=== PATIENT | male | born 1940 | race Caucasian/White ===

== ENCOUNTER → 2016-09-13 | Outpatient (CLI) | payer MEDICARE, OTHER ==
--- NOTE | 2016-09-13 14:56 | RADRPT ---
PROCEDURE: XR left knee. CLINICAL INDICATION: Knee pain TECHNIQUE: AP weightbearing, lateral weightbearing and sunrise views are available for review. COMPARISON: None available FINDINGS: There is moderate to severe osteoarthrosis involving the medial tibial femoral compartment and moder ate osteoarthrosis involving the patellofemoral compartment. This is associated with joint space yeyo rowing, subchondral sclerosis and osteophytosis. There is otherwise normal mineralization, architecture and alignment. No fractures are identified. No osseous lesions are identified. The soft tissues are unremarkable. IMPRESSION: Moderate to severe osteoarthrosis involving the medial tibial femoral compartment and moderate osteo arthrosis involving the patellofemoral compartment. RPTAT: HGDB .Rafael Carey MD, Date Time Electronically viewed and signed by .Rafael Carey MD, on 09/13/2016 14:56 .B/
--- NOTE | 2016-09-14 05:58 | HKNOTE ---
DATE OF SERVICE: 09/13/2016 MAIN COMPLAINT: Pain in the right knee. HISTORY OF MAIN COMPLAINT: The patient is a 76-year-old male who complains of pain in his right kne e which has been present since 2005. The patient underwent an arthroscopic operation on his knee at the [facility] 6 years ago. He was told at that time that his knee w as "full of arthritis," and that he could expect to have a knee replacement in the future. Over the past year, the pain has become very much worse and he can hardly get around. Patient has had 2 "series" of viscosupplementation. The first helped slightly, the 2nd did not help at all. He has had 2 cortisone injections into the knee which helped very temporarily. PRESENT COMPLAINTS: The pain in the knee is localized mostly medially and posteriorly. Pain does n ot radiate up or down the leg. Pain degree varies upon his level of activity. He can walk about 10 0 yards without stopping, but if he goes any further, the pain becomes so bad that he has to stop fo r a while. He has a cane. He gets pain with every step that he takes. His pain is aggravated by w alking, weightbearing and stair climbing. He does not get much pain at rest. Sometimes he gets nig ht pain. He does not have any back problems, no numbness or tingling in his legs. He limps all the time. He does not have a shoe lift. He can clip his toenails and tie his shoelaces . SPORTING ACTIVITIES: He rides a stationary bike every day. Otherwise, none. PAST ORTHOPEDIC HISTORY: Arthroscopy on the left knee 15 years ago for a torn meniscus. PRIOR CORTISONE INTAKE: The patient has had 2 cortisone injections in the past. ALCOHOL INTAKE: None. OTHER JOINT PROBLEMS: Right shoulder. BLOOD TESTS FOR ARTHRITIS: None. PRIOR INJURIES TO HIPS OR KNEES: None. 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 PAST MEDICAL HISTORY 1. Interstitial lung disease. 2. Parkinson's disease with Lewy bodies. 3. Hydrocephalus. PAST SURGICAL HISTORY: Arthroscopic surgery to the right knee by Dr. Mota in 2004. ALLERGIES: SULFA. MEDICATIONS: 1. OFEV for his interstitial lung disease. 2. Levodopa/carbidopa for Parkinson's disease. 3. Pioglitazone once a day for high blood sugar. 4. Azilect once a day. 5. Namenda ____twice a day. 6. Simvastatin for hypercholesterolemia. 7. Vitamin B12 for hypercholesterolemia. FAMILY HISTORY: Father at 80 of heart problems. Mother at 84 of heart problems. SYSTEMS REVIEW: Occasional heartburn. Occasional poor appetite. Gait disturbance. Prolonged hoars eness. Habitual constipation. HABITS: Patient does not smoke or drink alcoholic beverages. INDUSTRIAL LABORER: Dr. Jose Frost. PHYSICAL EXAMINATION GENERAL: The patient is a remarkably fit-looking 76-year-old male. He walks with a cane. He has a n antalgic gait. HIPS: Both hips have full range of motion without pain. RIGHT KNEE: The right knee shows varus alignment. Marked pain on putting the right knee through ran ge of motion. Active and passive extension lacks 10 degrees. Active and passive flexion is to 100 de grees. The medial and lateral collateral ligaments and cruciate ligaments are intact. Ramses test i s negative. There is 4+ crepitus in the knee; none in the patella. There is no effusion, tenderness , scarring, or cysts. The patella tracks normally. There is no tenderness on the articular surface o f the patella or in the patellar groove. The Q angle is normal. LEFT KNEE: The left knee shows normal alignment. Active and passive extension is 0 degrees. Active and passive flexion is 135 degrees. The medial and lateral collateral ligaments and cruciate ligamen ts are intact. Ramses test is negative. There is 4+ crepitus at the knee; none at the patella. The re is no effusion, tenderness, scarring, or cysts. The patella tracks normally. There is no tenderne ss on the articular surface of the patella or in the patellar groove. The Q angle is normal. IMAGING: Plain x-rays of the right knee obtained today show exceedingly severe degenerative osteoar thritis of the right knee affecting most severely the medial compartment and patellofemoral compartm ent., in which compartments, there is complete bone on bone loss of articular cartilage. Subchondr al sclerosis. Large osteophytes. Intraosseous cysts. Marked varus alignment. DIAGNOSIS: Exceedingly severe degenerative osteoarthritis of the right knee. MANAGEMENT: The patient is advised that he most certainly is a candidate for a knee replacement ope ration. The procedure and some of the major possible complications were discussed with him and his in a fair amount of detail. The patient was given my manual titled "Arthritis of the Hip Joint" which contains information ricardo rning the various alternatives of treatment. It includes various forms of conservative treatment, in cluding the use of nonsteroidal anti-inflammatory medications and their dangers. Various surgical al ternatives are discussed. The technique of total hip replacement is discussed in detail, including p ossible complications. Included also is a section on the possible complications of blood transfusion , a section on postoperative precautions, and an exercise program to follow at home after total hip replacement. The long-term care of a total hip replacement implant is also covered in detail. The pa mabel was instructed to read this manual in its entirety since it is, in and of itself, a form of in formed consent. After reading this manual, the patient will make a list of further questions that ma y not have been covered adequately. The patient was further advised that this manual, although exhau stive in nature, is only intended to supplement and complement a one-on-one discussion with me. The actual operation was discussed with him in a fair amount of detail. They were shown a model and drawings. Mr. Martin indicates that he is quite anxious to proceed with the procedure. He will first obtain clearance from his laborer/key man. the most important being Dr. Jose Frost ____. Dictated By: TATI ASHFORD/SANDRA Conf#: [id number] DID#: [id number]
== END | disposition home or self-care (01) ==
LOC: HKI 14:04
DX: M17.11 Unilateral primary osteoarthritis, right knee (principal); Z88.2 Allergy status to sulfonamides
CPT/HCPCS: 73562; G0463

== ENCOUNTER → 2016-11-03 | Outpatient (CLI) | payer MEDICARE, OTHER ==
--- NOTE | 2016-11-04 00:24 | HKNOTE ---
DATE OF SERVICE: 11/03/2016 Patient comes in for preoperative evaluation. He is scheduled to have operative arthroscopy on his left knee on 11/08/2016. He has been cleared for surgery by his teaching specialists, Dr. Suresh Huff. The patient has Parkinson's. He stopped taking his Diazole 3 days ago. This was recommended by h is neurologist, Dr. Jose Hall. Numerous questions were asked and answered. The patient's x-rays were reviewed. He has bone-on-bon e degenerative osteoarthritis. He comes in with his . No blood has been given for autotransfus ion. He understands the risks associated with using hospital blood. He is agreeable to [facility] blood if needed. Dictated By: TATI ASHFORD/SANDRA Conf#: [id number] DID#: [id number]
== END | disposition home or self-care (01) ==
LOC: HKI 13:21
DX: Z01.818 Encounter for other preprocedural examination (principal)
CPT/HCPCS: G0463

== ENCOUNTER 2016-11-08 05:16 | Inpatient (IN) | payer MEDICARE, OTHER ==
--- NOTE | 2016-11-03 09:24 | PREOPHP ---
DATE OF ADMISSION: 11/08/2016 The patient is to have surgery with Dr. Ray Romero on 11/08/2016. REASON FOR CONSULTATION: Consultation requested by Dr. Ray Romero for medical evaluation and clearance of a 76-year-old gentleman about to undergo total knee replacement on the left side. Thank you, Dr. Romero, for allowing us to participate in the care of this patient. HISTORY OF PRESENT ILLNESS: Wei Martin is a 76-year-old gentleman with problems with his left knee, who is currently being admitted for a total knee replacement. In terms of his prior surgical history, he has had arthroscopic surgery on that knee. He also had a lung biopsy on the right side for his interstitial lung disease. Other than that, he has really not had any medical hospitalizations, nor has he had any other major surgeries. He has also not broken any big bones. MEDICATIONS: He is currently taking the following medications: 1. Carbidopa/levodopa 25 mg, 2 tablets 3 times a day. 2. Namenda 10 mg, 1 tablet twice a day. 3. Simvastatin 20 mg, 1 a day. 4. Omeprazole 20 mg, 1 a day. 5. Nintedanib 150 mg, 1 tablet 2 times a day. 6. Pioglitazone 30 mg, 1 tablet a day, or Actos. 7. Azilect 1 mg, 1 tablet per day. 8. B12 5000 mcg daily. 9. Ipratropium bromide 0.6% solution 3 times a day, nasal spray for his allergies. ALLERGIES: SULFA. General health has been stable. SOCIAL HISTORY: The patient is , has 1 daughter. He does not smoke. Alcohol socially. He drinks 2 cups of coffee a day. 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 FAMILY HISTORY: Both parents are , both in their 80s of heart issues. One brother had dementia. One sister is alive and well. There is a family history of heart disease, hypertension, and stroke. REVIEW OF SYSTEMS: HEENT: Denies any significant headaches. CARDIORESPIRATORY: He does have shortness of breath on exertion. GASTROINTESTINAL: No melena or hematemesis. He does have some mild irritable bowel syndrome, as well as acid-related symptoms. GENITOURINARY: No urgency or frequency. MUSCULOSKELETAL: Positive for left knee pain. NEUROPSYCHIATRIC: Unremarkable. GENERAL HEALTH: As above. PHYSICAL EXAMINATION: VITAL SIGNS: The patient's blood pressure was 122/76, pulse was 80 and regular , respirations 18, temperature 97.6. Height 5 feet 7 inches, weight 171 pounds. GENERAL: The patient was noted to be a well-developed, well-nourished male, alert and cooperative, in no apparent acute distress, oriented to time, place, and person. HEAD, EARS, EYES, NOSE AND THROAT: Head was atraumatic. Eyes: Pupils were equal, reactive to light and accommodation. Fundi were benign. Tympanic membranes were unremarkable. Nose was negative. Mouth was unremarkable. Fair oral hygiene was present. NECK: Supple, without any rigidity. Trachea was midline. Thyroid was unremarkable. Neck veins were flat. Carotid pulses were equal. BACK EXAM: Unremarkable. CHEST: Symmetrical. Scars on the right side noted from his lung biopsy anteriorly. BREASTS AND AXILLARY EXAM: Did not reveal any masses. LUNGS: Revealed scattered rhonchi, occasional rales and wheezes. Otherwise unremarkable. HEART: Examination of the heart, PMI is fifth intercostal space at the midclavicular line. Regular sinus rhythm was noted. No significant murmurs, rubs, or gallops being elicited. ABDOMEN: Soft, good bowel sounds were noted. No significant organomegaly, masses, or tenderness. GENITALIA: Normal male external genitalia. RECTAL AND PROSTATIC EXAM: Per PCP, compatible with enlarged prostate, as reported by the patient. EXTREMITIES: Did not reveal any clubbing, edema or cyanosis. Some limitation of motion in the left knee being noted. Peripheral pulses were physiologic. SKIN: Moist and warm, without any eruptions. No gross lymphadenopathy was noted. NEUROLOGIC EXAM: Grossly intact. IMPRESSION: 1. Degenerative joint disease, left knee. 2. Interstitial lung disease, moderate. 3. Parkinson's disease. 4. Hyperlipidemia. 5. Gastroesophageal reflux disease. 6. Diabetes mellitus type 2. 7. Stable health. DISCUSSION: Review of laboratory and other data revealed the following: The patient's chemistry panel, including electrolytes, glucose, BUN, creatinine and liver function tests, cholesterol, magnesium, iron and TSH, were normal. Patient's hemoglobin A1c was 6.7, which is good control. CBC, sed rate, UA, PT and PTT were normal as well. The patient's EKG revealed some nonspecific ST-T wave changes, but no acute ST-T wave changes being noted. His chest x-ray was compatible with moderate chronic interstitial infiltrates and elevated diaphragms, but no acute cardiopulmonary changes being noted. DISCUSSION: Dr. Romero, the patient has been cleared by his adding machine operator, gem carver, and other individuals that are following him in terms of his surgery. I feel that at this point, he is a suitable candidate for surgery and can have this surgery under any desired form of anesthesia, albeit possibly a regional block may be preferable, if that is achievable, in view of his significant lung issues. Thank you again, Dr. Romero, for allowing us to participate in the care of this patient. We will follow him along with you during his stay at [facility]. Dictated By: TENISHA COLLADO/SANDRA Conf#: [id number] DID#: [id number] MTDD
[2016-11-07 10:16] VITALS: BMI 26.6
[~2016-11-08] VITALS: Ht 170.2 cm; Wt 78.0 kg
[2016-11-08] VITALS (34 sets, daily range): BP systolic 125–160; BP diastolic 59–85; PULSE 66–96; RESP 12–35; Ht 170.2 cm; Wt 78.0 kg
[2016-11-08] MEDS: LACTATED RINGER'S 1,000 ML IV* SCH ×2 (05:49)
[2016-11-08] MEDS: TRANEXAMIC ACID IRR SCH ×4 (06:00→08:52)
[2016-11-08] MEDS ORDERED: KNEE PAIN COCKTAIL VANCO INJ SCH ×6 (06:00)
[2016-11-08] MEDS ORDERED: TRANEXAMIC ACID IVPB ONE (06:00)
[2016-11-08] MEDS ORDERED: DEXAMETHASONE 4 MG/ML 1 ML INJ IV ONE (06:00)
[2016-11-08] MEDS ORDERED: SOD CHLORIDE 0.9% IVPB ONE (06:00)
[2016-11-08] MEDS ORDERED: ONDANSETRON 4 MG INJ IV ONE (06:00)
[2016-11-08] MEDS: SOD CHLORIDE 0.9% IRR SCH ×4 (06:00→08:52)
[2016-11-08] MEDS ORDERED: oxyCODONE (CR) 10 MG TAB [oxyCONTIN] PO ONE (06:00)
[2016-11-08] MEDS ORDERED: ACETAMINOPHEN 1000MG/100ML IV 100 ML IVPB ONE (06:00)
[2016-11-08] MEDS ORDERED: VANCOMYCIN 1 GM (PMX) 250 ML IVPB ONE (06:00)
[2016-11-08] MEDS ORDERED: LANSOPRAZOLE 30 MG CAP PO ONE (06:00)
[2016-11-08] MEDS ORDERED: LIDOCAINE 2% (SDV) 5 ML INJ ONE (06:10)
[2016-11-08] MEDS ORDERED: ROCURONIUM 50 MG INJ ONE (06:10)
[2016-11-08] MEDS ORDERED: PROPOFOL 20 ML ONE (06:10)
[2016-11-08] MEDS ORDERED: DEXAMETHASONE 4 MG/ML 1 ML INJ ONE (06:10)
[2016-11-08] MEDS ORDERED: MIDAZOLAM 1 MG/ML 2 ML INJ ONE (06:10)
[2016-11-08] MEDS ORDERED: NEOSTIGMINE 3 MG/3 ML SYRINGE ONE (06:10)
[2016-11-08] MEDS ORDERED: GLYCOPYRROLATE 0.4 MG INJ ONE (06:10)
[2016-11-08] MEDS ORDERED: FENTAnyl 50 MCG/ML VIAL ONE (06:10)
[2016-11-08] MEDS ORDERED: ONDANSETRON 4 MG INJ ONE (06:10)
[2016-11-08] MEDS ORDERED: EPHEDrine SULFATE 50 MG/5 ML SYG ONE (06:11)
[2016-11-08] MEDS ORDERED: LIDOCAINE 2%/EPI 30 ML INJ ONE (06:20)
[2016-11-08] MEDS ORDERED: ATROPINE 1 MG/10 ML SYRINGE IV PRN ×2 (06:30)
[2016-11-08] MEDS ORDERED: EPHEDrine SULFATE 50 MG/5 ML SYG IV PRN ×2 (06:30)
[2016-11-08] MEDS ORDERED: morphine (1 MG/ML) 10ML SYRINGE IV PRN ×6 (06:30)
[2016-11-08] MEDS ORDERED: LABETALOL HCL 20MG INJ IV PRN ×2 (06:30)
[2016-11-08] MEDS ORDERED: hydrALAzine 20 MG INJ IV PRN ×3 (06:30→19:30)
[2016-11-08] MEDS ORDERED: OXYCODONE/ACETAMINOPHEN (5/325) TAB PO PRN ×4 (06:30)
[2016-11-08] MEDS ORDERED: HYDROmorphONE (0.2 MG/ML) 10ML SYG IV PRN ×6 (06:30)
[2016-11-08] MEDS ORDERED: DIPHENHYDRAMINE 50 MG INJ IV PRN ×2 (06:30)
[2016-11-08] MEDS ORDERED: MEPERIDINE 25 MG INJ IV PRN ×2 (06:30)
[2016-11-08] MEDS ORDERED: FENTAnyl 50 MCG/ML VIAL IV PRN ×4 (06:30)
[2016-11-08] MEDS ORDERED: ONDANSETRON 4 MG INJ IV PRN ×2 (06:30)
[2016-11-08] MEDS ORDERED: MIDAZOLAM 1 MG/ML 2 ML INJ IV PRN ×2 (06:30)
[2016-11-08] MEDS ORDERED: RASA1TAB PO (06:48)
[2016-11-08] MEDS ORDERED: OMEP20CA16 PO (06:48)
[2016-11-08] MEDS ORDERED: NINT150C PO (06:48)
[2016-11-08] MEDS ORDERED: PIOG30TA26 PO (06:48)
[2016-11-08] MEDS ORDERED: MECO5000 PO (06:48)
[2016-11-08] MEDS ORDERED: SIN25100 PO (06:48)
[2016-11-08] MEDS ORDERED: IPRA12.93 INHALATION (06:48)
[2016-11-08] MEDS ORDERED: ZOC20 PO (06:48)
[2016-11-08] MEDS ORDERED: MEMA10TA16 PO (06:48)
[2016-11-08] MEDS ORDERED: METHYLENE BLUE 1% 10 ML INJ ONE (06:52)
[2016-11-08] MEDS ORDERED: ROPIVACAINE 0.2% 100 ML ONE (06:52)
[2016-11-08] MEDS ORDERED: POLYMYXIN B 500000 UNIT INJ ONE (06:52)
[2016-11-08] MEDS ORDERED: BUPIVACAINE 0.25%/EPI (SDV) 30 ML INJ ONE (06:52)
[2016-11-08] MEDS ORDERED: TOBRAMYCIN 1.2 GM POWDER ONE (06:52)
[2016-11-08] MEDS ORDERED: VANCOMYCIN 1 GM INJ ONE (06:53)
--- NOTE | 2016-11-08 06:54 | HPN ---
Date/Time of Note Date/Time of Note DATE: 11/08/16 TIME: 06:54 Interval H&P Admission Note Pt. seen H&P reviewed: No system changes JULITA MCKINLEY PA-C Nov 08, 2016 06:54
[2016-11-08] MEDS ORDERED: BACITRACIN 50000 UNITS INJ ONE (06:58)
[2016-11-08] MEDS: KNEE PAIN COCKTAIL VANCO INJ SCH ×12 (07:30→08:34)
[2016-11-08] MEDS ORDERED: LIDOCAINE 4% CR ONE (09:00)
--- NOTE | 2016-11-08 09:47 | RADRPT ---
PROCEDURE: Intraoperative imaging of the left knee with fluoroscopy. CLINICAL INDICATION: Left knee pain. Intraoperative. TECHNIQUE: Four images of the left knee were obtained in the operating room with an image intensif ier. No radiologist was in attendance. 5.2 seconds of fluoroscopy time was used. COMPARISON: 09/13/2016. FINDINGS: Images demonstrate components of a total left knee arthroplasty. IMPRESSION: 1. Intraoperative imaging of the left knee. RPTAT: QQ .Mushtaq Tam MD, MD Date Time Electronically viewed and signed by .Mushtaq Tam MD, MD on 11/08/2016 09:46 .R/
[2016-11-08] MEDS ORDERED: DEXTROSE 5%-LR 1,000 ML IV SCH (11:20)
[2016-11-08] MEDS ORDERED: MAGNESIUM HYDROXIDE 30ML CUP PO PRN (11:30)
[2016-11-08] MEDS ORDERED: MEPERIDINE 10 MG/ML 30 ML PCA IV PRN (11:30)
[2016-11-08] MEDS ORDERED: oxyCODONE 5 MG TAB PO PRN ×3 (11:30)
[2016-11-08] MEDS ORDERED: BETHANECHOL 25 MG TAB PO PRN (11:30)
[2016-11-08] MEDS ORDERED: NA PHOSPHATE/BIPHOS 133 ML ENEMA PR PRN (11:30)
[2016-11-08] MEDS ORDERED: DOCUSATE SODIUM 100 MG CAP PO ONE (11:30)
[2016-11-08] MEDS ORDERED: ASPIRIN (EC) 325 MG TAB PO ONE (11:30)
[2016-11-08] MEDS ORDERED: SENNA/DOCUSATE NA (8.6MG/50MG) TAB PO PRN (11:30)
[2016-11-08] MEDS ORDERED: NALOXONE (0.4 MG/ML) INJ IV PRN (11:30)
[2016-11-08] MEDS ORDERED: DIPHENHYDRAMINE 50 MG INJ IM PRN (11:30)
[2016-11-08] MEDS ORDERED: ZOLPIDEM 5 MG TAB PO PRN (11:30)
[2016-11-08] MEDS ORDERED: BISACODYL 10 MG SUPP PR PRN (11:30)
[2016-11-08] MEDS ORDERED: COUMADIN NOTE XX SCH (11:30)
[2016-11-08] MEDS ORDERED: HYDROmorphONE 0.2 MG/ML PCA IV PRN (11:30)
--- NOTE | 2016-11-08 11:50 | RADRPT ---
PROCEDURE: Left knee radiograph. CLINICAL INDICATION: Left knee pain. Intraoperative. TECHNIQUE: Single lateral intraoperative image. COMPARISON: Prior study done earlier the same day. FINDINGS: There are components of a total left knee arthroplasty. Alignment is satisfactory. IMPRESSION: 1. Satisfactory intraoperative imaging of the left knee. RPTAT: QQ .Mushtaq Tam MD, MD Date Time Electronically viewed and signed by .Mushtaq Tam MD, MD on 11/08/2016 11:50 .R/
[2016-11-08] MEDS: ACETAMINOPHEN 1000MG/100ML IV 100 ML IVPB SCH ×2 (12:03→20:52)
[2016-11-08] MEDS: CEFAZOLIN 1 GM/50 ML (PMX) 50 ML IVPB SCH ×2 (12:04→21:57)
[2016-11-08] MEDS: ONDANSETRON 4 MG INJ IV SCH ×3 (12:04→23:30)
--- NOTE | 2016-11-08 12:40 | RADRPT ---
PROCEDURE: CR Left Knee CLINICAL INDICATION: Replacement postop TECHNIQUE: An AP and lateral view were submitted. COMPARISON: Intraoperative study done earlier on the same date FINDINGS: Osseous Structures: There is a well seated total left knee replacement again evident. The osseous e lements otherwise appear intact. Joint Spaces: There is a joint effusion and 2 drains have been placed. Soft Tissues: Subcutaneous air and superficial ed are noted. IMPRESSION: 1. Well seated total left knee replacement. 2. Joint effusion with drains in place 3. Subcutaneous air and anterior superficial ed are now evident. Physician Astrid Date Time Electronically viewed and signed by Physician Astrid on 11/08/2016 12:40 RH/
[2016-11-08] MEDS: IPRATROPIUM (HFA) 12.9 GM INHALER INH SCH ×2 (13:00→17:00)
--- NOTE | 2016-11-08 14:00 | OPR ---
DATE OF OPERATION: 11/08/2016 TOTAL KNEE REPLACEMENT TEMPLATE #1 SURGEON: Ray Romero MD PATIENT COORDINATOR: EV Najera ANESTHESIOLOGIST: Dr. Arias PREOPERATIVE DIAGNOSIS: Exceedingly severe degenerative osteoarthritis of the left knee. POSTOPERATIVE DIAGNOSIS: Exceedingly severe degenerative osteoarthritis of the left knee. OPERATION PERFORMED: Left total knee replacement (arthroplasty of the knee, condylar plateau medial and lateral compartments with patella resurfacing, CPT 39743). FINDINGS AT SURGERY: The patient was found to have exceedingly severe degenerative osteoarthritis o f the entire knee. There was no normal articular cartilage anywhere in the knee, there were usual o steophytes around the entire periphery of the distal femur and the medial tibial plateau. His bone w as markedly hard. JUSTIFICATION FOR SURGERY: The knee was found to have end-stage osteoarthritis. The patient is a v arielle active 76-year-old male whose lifestyle is markedly affected by the arthritic knee. An extensiv e course of conservative care has been tried prior to embarking on the knee replacement operation. There can be no reasonable expectation that any further conservative treatment will make any improve ment to this patient's pain level and lifestyle. The risks and complications of the surgery were di scussed with the patient at the preoperative visit as well as the risks and possible complications o f blood transfusion using hospital blood. The patient is agreeable to using hospital blood if neede d. DESCRIPTION OF PROCEDURE: The patient was given intravenous antibiotics 1 hour prior to surgery. A n epidural anesthetic was initiated in the ICU holding area. The patient was taken to the operating room and given a light general anesthetic. The leg, foot, and ankle were prepared and draped in th e usual sterile fashion. The center of the ankle was marked at the midpoint between the 2 malleoli with a sterile marking pen. A tourniquet around the thigh was inflated to 250 mmHg after the leg tamayo d been exsanguinated using an Esmarch bandage. The tourniquet was inflated at the initiation of pro cedure for a short period and was then again reinflated at the time of cementing the components part s. The total tourniquet time was 52 minutes. A longitudinal incision was made over the anterior aspect of the knee. The incision extended from t he tibial tubercle to a point just above the patella. The medial capsule was exposed by sharp and b miriam dissection, and was incised 1/4 inch medial to the patella. A marking stitch was set on each s gustavo of the incision at the midpoint of the capsule so as to enable accurate reapproximation at the e nd of the operation. A vastus split was made in the vastus medialis extending from the superior daniel e of the patella for approximately 5 cm between the line with the muscle fibers. The ends of the mu scle split at the patella were marked with a marking stitch on each side for later accurate reapprox imation. The patella was reflected laterally and osteophytes around the rim of the patella were rem kervin. Osteophytes along the lateral femoral condyle were removed so as to facilitate lateral reflec tion of the patella. Posteromedial osteophytes were removed on the lateral side as well, so as to f ree up the lateral collateral ligament. Medial femoral osteophytes and posteromedial femoral osteop hytes were also removed at this time. This allowed for the knee to be brought into a more normal al ignment. A segment of bone was cut from the articular surface of the patella using a caliper to det ermine the exact thickness to be removed. The remaining thickness of the patella was 18 mm. The kn ee was flexed, and the patella was displaced laterally without eversion. Osteophytes in the femoral notch were removed. The remnants of the medial and lateral menisci were excised and the cruciate l igaments were excised. The medial collateral ligament was elevated as an osteo-periosteal flap from the proximal tibia. The distal end of the medial collateral ligament remained attached to the tibi a throughout the operation. The tibia was retracted forward with Hohmann retractor, inserted customs compliance analyst ior to the midpoint of the proximal tibia. The tibial jig was set in place in such a way as to alig n longitudinally with the anterior tibial spine, with the junction of the middle and medial 2/3 of t he patella tendon, and with the posterior intercondylar eminence of the tibia. An AP and lateral x- ray was obtained with the alignment jig in place. This showed that the alignment was satisfactory a fter some slight adjustments were made. The posterior slope of the tibia was set at 6 degrees. The tibial cutting block was attached to the proximal tibia with 2 Steinmann pins. An external alignme nt leda was placed on the cutting block to confirm the alignment of the cutting block. An Kareem Wing feeler gauge was now placed on the superior aspect of the cutting block to further confirm the post erior slope of the tibia and the depth of the cut to be made. An oscillating saw was used to remove an appropriate amount of bone from the proximal tibia with the healthy side being used to measure t he cutting depth. The lateral femoral condyle of the distal femur was measured to determine the aurelio ropriate size for the femoral component. The anterior condyle of the femur was partially removed wi th a rongeur. A medium-sized cutting block was attached to the distal femur with 2 Steinmann pins t hrough the pin holes in the block. The external alignment jig of this cutting block was lined up wi th the anterior surface of the femur and a central intercondylar hole for the intramedullary leda was drilled through the hole in the alignment block. The block was removed. A long Waterpik nozzle wa s used to flush fat from the intramedullary canal. The appropriately sized cutting block was now at tached to the femur by means of an intramedullary leda. The linking guide was inserted into the slot in the base of the femoral cutting block with the knee set at 90 degrees of flexion and with the li nking guide set flush with the proximal tibial cut in order to set the appropriate rotational alignm ent on the femoral cutting block. Ligament balance was checked at this point and was found to be ve ry satisfactory. Once the rotational alignment had been determined, and the ligaments found to be b alanced, the femoral cutting block was secured to the distal femur with 2 Steinmann pins. The anter ior and posterior cuts of the distal femur were made off the femoral cutting block. The cutting blo ck was removed and a spacer block was used to measure the flexion gap which was found to be ____ mm. The same spacer block size without the femoral element was used with the leg in extension to determi ne the amount of distal femur to be removed in the transverse plane. A 5-degree distal cutting bloc k was now set on the femoral intramedullary leda, and the leda was inserted into the intramedullary ca nal. The appropriate amount of bone to be removed was determined. The femoral cutting block was pi nned to the anterior surface of the femur with 2 Steinmann pins. The appropriate amount of bone was resected off the distal femur to give an extension gap equal to the thickness of the flexion gap. The cut needed to be repeated after initial cut in order to produce an extension gap the same size a s the flexion gap. By using the appropriate cutting blocks, the rest of the femoral cuts were made. The femoral trial component was installed and was found to fit perfectly. The femoral trial component was removed. T he proximal tibia was sized, and the appropriate tibial tray selected. The central fixation hole in the tibia was made using the tibial tray template and the appropriate instruments. The femoral and tibial trials and the trial tibial insert were installed, and the patella was prepared to accept th e 3/8 mm-sized dome component. The trial components were all removed. The tourniquet was inflated. Soft tissues around the knee, especially the posterior capsule, were injected with a mixture of Na ropin, Toradol, morphine, and clonidine. The cut surfaces of the bones were cleaned with pulsatile Water Jet lavage and thoroughly dried. Sclerotic bone surfaces were drilled with a 1/8-inch drill. The tibial trial component was installed with methyl methacrylate cement followed by the femoral co mponent and finally the patellar component. Cement was used on all 3 components. The cement was fi nger packed into the cut surfaces of the bone and pressurized with a rubber dam in order to get good interdigitation of the cement into the bone. A lateral x-ray of the knee was obtained while the ce ment was hardening with the 12.[address]. This x-ray showed that the knee was in full ex tension and that the 12.5 mm insert would be the appropriate size. Once the cement was hard, all ex traneous cement was removed. The cut edges of the medial capsule were held together at the midpoint with a towel clip, and the knee was put through a full range of motion. The patella was found to t rack satisfactorily. A lateral release was not required. At this point, the patella was found to t rack very well in the patellar groove of the femoral component. The knee was frequently irrigated with normal saline containing antibiotics with pulsatile lavage th roughout the entire operation as a prophylactic measure against infection. Once the cement was hard , the tourniquet was released. Bleeding points were cauterized. The total tourniquet time was 52 m inutes. The patient's vital signs remained stable throughout the operation. The permanent rotating bearing was installed. Superficial and deep Hemovac drains were set in place . The wound was closed using interrupted Vicryl on the capsule with FiberWire used at strategic poi nts such as the attachment of the distal ends of the vastus medialis at the split, and the tibial te ndon was also attached to the osteo-periosteal flap with FiberWire. The rest of the medial capsule was closed with interrupted Vicryl. A subcuticular stitch was inserted and ed were used on the skin. The usual sterile dressings were applied. A Jose Manuel-Kitchen compression dressing was applied a fter a sterile cooling pad had been set in place against the deep tissues by sterile cast padding. The patient's condition at the end of the procedure was satisfactory. Vital signs remained stable t hroughout the operation. The patient returned to the recovery room in stable condition. X-rays wer e obtained in the recovery room. Calf pumps were applied to both legs in the operating room. There were no problems or complications as far as we know. The sponge and instrument counts were correct . COMPONENT INFORMATION: KNEE IMPLANT TYPE: LCS. FEMORAL COMPONENT SIZE: Large TIBIAL COMPONENT SIZE: #4 PATELLAR COMPONENT SIZE: 38 mm dome TIBIAL INSERT: 12.5 mm mobile bearing deep dish posterior stabilized. 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 TOTAL TOURNIQUET TIME: 52 minutes. TOTAL BLOOD LOSS: 180 cc Dictated By: RAY ASHFORD/SANDRA Conf#: [id number] DID#: [id number]
[2016-11-08] MEDS ORDERED: TRANEXAMIC ACID 780 MG in SOD CHLORIDE 0.9% 100 ML IVPB ONE ×2 (15:00→18:00)
--- NOTE | 2016-11-08 15:37 | CONS ---
DATE OF ADMISSION: 11/08/2016 DATE OF CONSULTATION: 11/08/2016 POSTOPERATIVE CONSULT FOLLOWUP The patient had surgery with Dr. Ray Romero on 11/08/2016. SUBJECTIVE: The patient is seen in the recovery room. Vital signs are stable. The patient is aler t, albeit it still slightly groggy. Family is with him. OBJECTIVE: VITAL SIGNS: The patient's vital signs revealed the following: Blood pressure is 145/74, pulse is 74, respirations 15, O2 saturation 100% on 2 liters. The patient was afebrile. HEENT: Unremarkable. LUNGS: Clear. HEART: Reveals a regular rhythm. ABDOMEN: Unremarkable. IMPRESSION: 1. Status post total knee replacement on the left. 2. Interstitial lung disease, moderately severe. 3. Parkinson's disease. 4. Hyperlipidemia. 5. Gastroesophageal reflux disease. 6. Diabetes mellitus type 2. DISCUSSION: Review of the patient's medication, they have been reordered as he takes them at home. His only medicine for his diabetes has been his Actos and this has been controlling him relatively well with a hemoglobin A1c in the 6s. We will continue to monitor him in terms of his other medical conditions. We will follow him along with you during his stay at [facility]. Thank you again, Dr. Romero, for allowing us to participate in care of this patient. Dictated By: TENISHA ROA MD SS/SANDRA Conf#: [id number] DID#: [id number]
[2016-11-08] MEDS ORDERED: GLUCAGON 1 MG INJ IM PRN (16:00)
[2016-11-08] MEDS ORDERED: DEXTROSE 50% 50 ML SYRINGE IV PRN ×2 (16:00)
[2016-11-08] MEDS ORDERED: GLUCOSE GEL 15 GRAM TUBE BUCCAL PRN (16:00)
[2016-11-08] MEDS ORDERED: GLUCOSE GEL 15 GRAM TUBE PO PRN ×2 (16:00)
[2016-11-08] MEDS: CARBIDOPA/LEVODOPA (25/100) TAB PO SCH ×3 (17:37→21:00)
[2016-11-08] MEDS: INSULIN ASPART [NOVOLOG] 3 ML PEN SC SCH (18:06)
[2016-11-08] MEDS ORDERED: LORAZEPAM 2 MG INJ IV PRN (19:30)
[2016-11-08] MEDS: MEMANTINE 10 MG TAB PO SCH (20:53)
[2016-11-08] MEDS: LACTATED RINGER'S 1,000 ML IV SCH (20:53)
[2016-11-09 00:13] VITALS: BP 152/86; RESP 18
[2016-11-09] MEDS: ONDANSETRON 4 MG INJ IV SCH ×3 (01:03→06:18)
[2016-11-09] MEDS: ACETAMINOPHEN 1000MG/100ML IV 100 ML IVPB SCH ×4 (03:30→20:16)
[2016-11-09] MEDS: CEFAZOLIN 1 GM/50 ML (PMX) 50 ML IVPB SCH ×2 (03:30→06:18)
[2016-11-09 05:50] LABS: ADD SCAN DIFF NO
[2016-11-09 05:54] LABS: BASOPHILS % 0.1 % (0.0-2.0); HEMATOCRIT 34.3 % (42.0-52.0); LYMPHOCYTES # 0.9 10^3/ul (0.8-2.9); LYMPHOCYTES % 5.5 % (15.0-51.0); MEAN CORPUSCULAR HEMOGLOBIN 26.8 pg (29.0-33.0); MEAN CORPUSCULAR HGB CONC 32.1 g/dl (32.0-37.0); MEAN CORPUSCULAR VOLUME 83.7 fl (82.0-101.0); MEAN PLATELET VOLUME 11.4 fl (7.4-10.4); MONOCYTE # 1.2 10^3/ul (0.3-0.9); MONOCYTES % 7.4 % (0.0-11.0); NEUTROPHIL # 13.5 10^3/ul (1.6-7.5); NEUTROPHILS % 86.5 % (39.0-77.0); PLATELET COUNT 175 10^3/UL (140-415); RED CELL DISTRIBUTION WIDTH 15.1 % (11.5-14.5); WHITE BLOOD COUNT 15.5 10^3/ul (4.8-10.8)
[2016-11-09] MEDS ORDERED: BUPIVACAINE 0.25%/EPI (SDV) 30 ML INJ INJ PRN (06:00)
[2016-11-09] MEDS ORDERED: KETOROLAC 15 MG INJ INJ PRN (06:00)
[2016-11-09] MEDS: DEXAMETHASONE 4 MG/ML 1 ML INJ IV SCH (06:18)
[2016-11-09 07:16] VITALS: BP 154/68; RESP 20
--- NOTE | 2016-11-09 07:28 | PN ---
Date/Time of Note Date/Time of Note DATE: 11/09/16 TIME: 07:21 Assessment/Plan VTE Prophylaxis VTE Prophylaxis Intervention: ambulation, anti-embolic stocking, SCD's, other ( Aspirin 325 mg twice daily.) Lines/Catheters IV Catheter Type (from Nrsg): Peripheral IV Jarvis in Place (from Nrsg): No Assessment/Plan Assessment/Plan -Hemovac Removed Today. 240 cc output -Pain Cocktail Given -Pain Meds as needed -Due to increased erythema primarily along the medial side of the left knee. Vancomycin ordered for infection prophylaxis (pharmacy to adjust). - states that patient had limited cold therapy in regards to ice in his cold therapy bucket. Please be aware and should ice melt, please refill bucket with fresh ice to continue consistent cold therapy. -Dress change performed today -OOB with PT -ASA/SCDs for DVT Prophylaxis -Continue monitoring with Internal Medicine -Patient Stable Subjective 24 Hr Interval Summary 76-year-old male postop day 1 status post left total knee replacement. Denies any pain complaints of the left knee. No physical therapy performed yesterday. Patient states however, that he is able to flex his knee. Has been performing flexion in bed. Denies any chest pain/chest tightness or shortness of breath. Patient is with . has concerns as patient had issues voiding for the first couple hours after surgery. Straight cath was placed in which patient had significant voiding of urine. Patient continues to void after straight cath was removed. Diaper was placed. Other than that patient seems to be okay. No increased voiding at this time. Pain Control: well controlled Exam/Review of Systems Vital Signs Vitals Vital Signs Date Time Temp Pulse Resp B/P Pulse Ox O2 Delivery O2 Flow Rate FiO2 11/09/16 00:13 98.1 70 18 152/86 99 11/08/16 20:00 Nasal Cannula 2.0 Intake and Output 11/08/16 11/08/16 11/09/16 15:00 23:00 07:00 Intake Total 370 ml 615.6 ml 640 ml Output Total 500 ml 125 ml 510 ml Balance -130 ml 490.6 ml 130 ml Exam Free Text/Dictation -Hemovac: Intact. 240 cc output. -Pain Cocktail Drains: Intact -Incision: Clean, Dry and Intact. No drainage but there is erythema primarily to the medial side of the left knee. No suspected infection. -5/5 Tibialis Anterior, EHL Gastrocnemius/Soleus and Peroneals -Normal Sensation -Palpable DP/PT, Capillary Refill <2 secs -No Distal Edema -Negative Alexandro Sign/No calf pain -Toes Freely Movable Constitutional: alert, oriented, well developed Results Result Diagram: 11/09/16 0510 JULITA MCKINLEY PA-C Nov 09, 2016 07:28
[2016-11-09] MEDS ORDERED: VANCOMYCIN IV PER PHARMACY XX SCH (07:30)
[2016-11-09 08:13] LABS: CREATININE 0.95 mg/dl (0.61-1.24)
[2016-11-09] MEDS ORDERED: RASAGILINE MESYLATE 1 MG TAB PO SCH ×2 (09:00)
[2016-11-09] MEDS ORDERED: OFEV 150 MG PO SCH (09:00)
[2016-11-09] MEDS ORDERED: NON-FORMULARY/PATIENT OWN MED (Omeprazole* 20 MG) PO SCH (09:00)
[2016-11-09] MEDS: INSULIN ASPART [NOVOLOG] 3 ML PEN SC SCH ×2 (09:30→17:25)
[2016-11-09] MEDS: DOCUSATE SODIUM 100 MG CAP PO SCH ×2 (09:30→20:18)
[2016-11-09] MEDS: ASPIRIN (EC) 325 MG TAB PO SCH ×2 (09:31→20:18)
[2016-11-09] MEDS: PIOGLITAZONE 30 MG TAB PO SCH (09:32)
[2016-11-09] MEDS: CARBIDOPA/LEVODOPA (25/100) TAB PO SCH ×3 (09:32→18:34)
[2016-11-09] MEDS: ATORVASTATIN 10 MG TAB PO SCH (09:32)
[2016-11-09] MEDS: FERROUS FUMARATE (SR) TAB PO SCH ×2 (09:32→20:18)
[2016-11-09] MEDS: MEMANTINE 10 MG TAB PO SCH ×2 (09:33→20:18)
[2016-11-09] MEDS: RASAGILINE 0.5 MG PO SCH (09:33)
[2016-11-09] MEDS: OFEV 150 MG PO SCH ×2 (09:34→18:34)
[2016-11-09] MEDS: LACTATED RINGER'S 1,000 ML IV SCH ×2 (09:45→21:00)
[2016-11-09] MEDS ORDERED: VANCOMYCIN 1.5 GM in SOD CHLORIDE 0.9% 250 ML IVPB SCH (10:00)
--- NOTE | 2016-11-09 11:07 | CONS ---
DATE OF ADMISSION: 11/08/2016 DATE OF CONSULTATION: 11/09/2016 Consult follow up done approximately 8:00 a.m. 11/09/2016. HISTORY OF PRESENT ILLNESS: The patient is quite alert this morning, talking and answering question s appropriately. at his bedside. The patient had a relatively decent night. VITAL SIGNS: Blood pressure was 154/68, pulse was 74 and regular, respirations were 20, temperature 98.1, O2 saturation 92% on room air. HEENT: Unremarkable. LUNGS: Relatively clear to percussion and auscultation. HEART: Reveals a regular rhythm. The rest of the exam is unremarkable. IMPRESSION: 1. Status post total knee replacement on the left. 2. Interstitial lung disease, moderately severe, 3. Parkinson disease. 4. Hyperlipidemia. DISCUSSION: Laboratory data revealed an elevated white count, probably secondary to steroids at thi s point and his sugars have all been quite acceptable including his BUN and creatinine that was done today. Plan per Dr. Romero will be ambulating today. Hopefully, will make good progress. Had some issues with urination, resolved this morning. Thank you again, Dr. Romero, for allowing us to participate in care of this patient. Dictated By: TENISHA COLLADO/SANDRA Conf#: [id number] DID#: [id number]
[2016-11-09] MEDS: IPRATROPIUM 0.03% 30 ML NASAL SPRAY NASAL SCH ×3 (11:30→20:17)
[2016-11-09] MEDS ORDERED: [UNRECOGNIZED DRUG - REMARK] XX SCH (13:30)
[2016-11-09] MEDS: IPRATROPIUM NASAL SCH ×2 (14:16→20:17)
[2016-11-09 19:00] VITALS: BP 156/77; RESP 18
[2016-11-09] MEDS: VANCOMYCIN 1 GM in NS 250 ML IVPB SCH (22:03)
[2016-11-10] MEDS: ACETAMINOPHEN 1000MG/100ML IV 100 ML IVPB SCH (04:28)
[2016-11-10 05:16] LABS: ADD SCAN DIFF NO
[2016-11-10 05:20] LABS: BASOPHILS % 0.2 % (0.0-2.0); EOSINOPHILS # 0.1 10^3/ul (0.0-0.5); EOSINOPHILS % 0.4 % (0.0-7.0); HEMATOCRIT 32.7 % (42.0-52.0); HEMOGLOBIN 10.4 g/dl (14.0-18.0); LYMPHOCYTES % 15.1 % (15.0-51.0); MEAN CORPUSCULAR HEMOGLOBIN 26.8 pg (29.0-33.0); MEAN CORPUSCULAR HGB CONC 31.8 g/dl (32.0-37.0); MEAN CORPUSCULAR VOLUME 84.3 fl (82.0-101.0); MEAN PLATELET VOLUME 11.2 fl (7.4-10.4); MONOCYTE # 1.3 10^3/ul (0.3-0.9); NEUTROPHIL # 9.7 10^3/ul (1.6-7.5); NEUTROPHILS % 73.9 % (39.0-77.0); PLATELET COUNT 170 10^3/UL (140-415); RED BLOOD COUNT 3.88 10^6/ul (4.70-6.10); RED CELL DISTRIBUTION WIDTH 15.4 % (11.5-14.5); WHITE BLOOD COUNT 13.1 10^3/ul (4.8-10.8)
[2016-11-10 05:31] LABS: CREATININE 0.89 mg/dl (0.61-1.24)
[2016-11-10] MEDS: DEXAMETHASONE 4 MG/ML 1 ML INJ IV SCH (06:46)
[2016-11-10] MEDS: PANTOPRAZOLE (EC) 40 MG TAB PO SCH (06:46)
[2016-11-10] MEDS: INSULIN ASPART [NOVOLOG] 3 ML PEN SC SCH ×2 (07:20→18:32)
[2016-11-10 08:21] VITALS: RESP 16
--- NOTE | 2016-11-10 08:31 | PN ---
Date/Time of Note Date/Time of Note DATE: 11/10/16 TIME: 08:25 Assessment/Plan VTE Prophylaxis VTE Prophylaxis Intervention: ambulation, SCD's, other (Aspirin 325 mg twice daily) Lines/Catheters IV Catheter Type (from Nrs): Saline Lock Jarvis in Place (from Nrsg): No Assessment/Plan Assessment/Plan -Pain Cocktail Given in drains removed. -Pain Meds as needed -Dress change performed today -ASA for DVT Prophylaxis x 6 weeks outpatient discussed. -Tegaderm dressings given with specific instructions to use as outpatient to keep wound dry until ed are moved around 10 days. -Patient Stable -Patient was initially given okay to discharge home from orthopedic and medicine standpoint. Patient continues with elevated white blood cell count however. White blood cell count continues to improve as yesterday was 15.1 and today it is 13.5. Patient has scheduled repeat vancomycin dose that is currently being administered as well as second dose later this evening. It was explained to the and patient that although he was originally okay to go home, it is recommended that he stay 1 additional night for continued monitoring and antibiotic treatment for infection prophylaxis. Patient and are okay with current treatment plan. Likely patient will go home with home health tomorrow. Subjective 24 Hr Interval Summary 76-year-old male postop day 2 left total knee arthroplasty. No pain complaints of the left knee overnight. Patient has been up and out of bed and walking with assistance using front wheeled walker. Patient is able to walk throughout the halls. Denies any falls or instability. Patient is very pleased status post surgery. Patient continues to progress well. Patient states that he is ready to go home. Denies any calf pain, shortness of breath, chest pain/ tightness. Was given vancomycin yesterday due to erythema to the medial knee. Constitutional: ambulates, improved, no complaints Pain Control: well controlled Exam/Review of Systems Vital Signs Vitals Vital Signs Date Time Temp Pulse Resp B/P Pulse Ox O2 Delivery O2 Flow Rate FiO2 11/10/16 08:21 98.6 65 16 97 11/09/16 19:00 156/77 11/09/16 08:25 Nasal Cannula 2.0 Intake and Output 11/09/16 11/09/16 11/10/16 15:00 23:00 07:00 Intake Total 2740 ml 950 ml Output Total 1600 ml Balance 1140 ml 950 ml Exam Free Text/Dictation -Hemovac: Removed -Pain Cocktail Drains: Intact -Incision: Clean, Dry and Intact. Redness/erythema primarily to the medial side of the knee has improved. -Up to 90 active flexion to the left knee. About 5 lag from full extension. -5/5 Tibialis Anterior, EHL Gastrocnemius/Soleus and Peroneals -Normal Sensation -Palpable DP/PT, Capillary Refill <2 secs -No Distal Edema -Negative Alexandro Sign/No calf pain -Toes Freely Movable Constitutional: alert, oriented, well developed Results Result Diagram: 11/10/16 0445 11/10/16 0445 JULITA MCKINLEY PA-C Nov 10, 2016 08:30
--- NOTE | 2016-11-10 08:45 | DS ---
Date/Time of Note Date/Time of Note DATE: 11/10/16 TIME: 08:31 Discharge Summary Admission/Discharge Info Admit Date/Time Nov 08, 2016 at 05:16 Discharge Date/Time 11/11/2016 Final Diagnosis Status post left total knee replacement on 11/08/2016. Patient Condition: Stable Hospital Course On the day of admission, the patient underwent left total knee replacement Intraoperative complications: None Postoperative complications: None The patient was given prophylactic antibiotics and anticoagulants. On the day of surgery and first postoperative day patient was started on gait training and was taught usual restrictions following knee replacement. Suction drain removed on the first postoperative day and the dressings were changed. The wound was found to be clean and healing well. There was erythema to the left knee so as a precaution, vancomycin ordered for infection prophylaxis. Pain cocktail given. On the second postoperative day, patient continued with inpatient PT. Dressings were changed. Wound was found to be clean and healing well. Erythema significantly improved. No signs of infection but white blood cell count continued to be elevated at around 13. Previous stay was around 15. Patient was okay to go home but given continued elevated white blood cell count. It was explained to the family that he should remain an additional day to finish out antibiotic regimen of vancomycin. Pain cocktail given. On the day of discharge, the wound was clean and healing well; there was no sign of infection. White blood cell count was down to 11.8 and trending downward. Last dose of vancomycin was given and the dressings were changed. Patient was cleared by internal medicine to go home. Discharge Temperature: 97.7 Discharge White Blood Cell Count: 11.8 Discharge Hemoglobin: 11.2 The patient was discharged home with home health. Arrangements were made for visiting nurses and home health/physical therapy. Tegaderm with pad also provided for patient. Instructions given on how to use to keep wound dry while showering. Patient may discontinue use of Tegaderm with pad after ed have been removed around 10 days postoperatively. The patient will be seen in office at scheduled postoperative evaluation date given on their preoperative exam. Should patient complain of any problems prior to scheduled postoperative evaluation date, they may call into outpatient clinic to determine if they need to be scheduled at sooner appointment to be seen immediately if needed. Discharge medications: As per medication reconciliation form Diet: Same as preadmission diet. This is [place] Enriqueta, PA-C dictating discharge summary for Dr. Ray Romero. Home Meds Reported Medications Ipratropium [place]* (Atrovent HFA*) 12.9 Gm Aer.w.adap, 2 PUFF INHALATION TID, #1 INHALER 11/08/16 Mecobalamin (B-12) 5,000 Mcg Tab.rapdis, 5000 MCG PO 11/08/16 Rasagiline Mesylate* (Azilect*) 1 Mg Tablet, 1 MG PO DAILY, TAB 11/08/16 Pioglitazone Hcl* (Pioglitazone Hcl*) 30 Mg Tablet, 30 MG PO DAILY, TAB 11/08/16 Nintedanib Esylate (Ofev) 150 Mg Capsule, 150 MG PO, CAP 11/08/16 Omeprazole* (Omeprazole*) 20 Mg Capsule.dr, 20 MG PO DAILY, #30 CAP 11/08/16 Simvastatin (Simvastatin) 20 Mg Tablet, 20 MG PO DAILY, #30 TAB 11/08/16 Memantine* (Namenda*) 10 Mg Tablet, 10 MG PO BID, #60 TAB 11/08/16 Carbidopa-Levodopa* (Sinemet*) 25-100 Mg Tab, 2 TAB PO TID, TAB 11/08/16 Follow-up Plan Follow-up at postoperative appointment given at preop exam. Patient and patient's made aware that should he experience any complications prior to scheduled follow-up appointment, he may follow-up sooner. Pending Labs Laboratory Tests Test 11/09/16 12:06 11/09/16 17:30 11/10/16 04:45 11/10/16 08:01 Bedside Glucose 128mg/dL (70-220) 134mg/dL (70-220) 109mg/dL (70-220) White Blood Count 13.110^3/ul (4.8-10.8) Red Blood Count 3.8810^6/ul (4.70-6.10) Hemoglobin 10.4g/dl (14.0-18.0) Hematocrit 32.7% (42.0-52.0) Mean Corpuscular Volume 84.3fl (82.0-101.0) Mean Corpuscular Hemoglobin 26.8pg (29.0-33.0) Mean Corpuscular Hemoglobin Concent 31.8g/dl (32.0-37.0) Red Cell Distribution Width 15.4% (11.5-14.5) Platelet Count 33420^3/UL (140-415) Mean Platelet Volume 11.2fl (7.4-10.4) Neutrophils % 73.9% (39.0-77.0) Lymphocytes % 15.1% (15.0-51.0) Monocytes % 10.0% (0.0-11.0) Eosinophils % 0.4% (0.0-7.0) Basophils % 0.2% (0.0-2.0) Nucleated Red Blood Cells % 0.0/100WBC (0.0-0.0) Neutrophils # 9.710^3/ul (1.6-7.5) Lymphocytes # 2.010^3/ul (0.8-2.9) Monocytes # 1.310^3/ul (0.3-0.9) Eosinophils # 0.110^3/ul (0.0-0.5) Basophils # 0.010^3/ul (0.0-0.1) Nucleated Red Blood Cells # 0.010^3/ul (0.0-0.0) Blood Urea Nitrogen 18mg/dl (7-20) Creatinine 0.89mg/dl (0.61-1.24) JULITA MCKINLEY PA-C Nov 10, 2016 08:41
[2016-11-10] MEDS: IPRATROPIUM 0.03% 30 ML NASAL SPRAY NASAL SCH ×3 (09:00→21:00)
[2016-11-10 09:30] VITALS: BP 151/73; PULSE 73; RESP 20
[2016-11-10] MEDS: VANCOMYCIN 1 GM in NS 250 ML IVPB SCH ×2 (09:30→22:22)
[2016-11-10] MEDS: LACTATED RINGER'S 1,000 ML IV SCH ×2 (09:30→22:00)
[2016-11-10] MEDS: ASPIRIN (EC) 325 MG TAB PO SCH ×2 (09:30→20:36)
[2016-11-10] MEDS: DOCUSATE SODIUM 100 MG CAP PO SCH ×2 (09:30→20:36)
[2016-11-10] MEDS: MEMANTINE 10 MG TAB PO SCH ×2 (09:31→20:36)
[2016-11-10] MEDS: FERROUS FUMARATE (SR) TAB PO SCH ×2 (09:31→20:36)
[2016-11-10] MEDS: RASAGILINE 0.5 MG PO SCH (09:31)
[2016-11-10] MEDS: CARBIDOPA/LEVODOPA (25/100) TAB PO SCH ×3 (09:31→18:38)
[2016-11-10] MEDS: ATORVASTATIN 10 MG TAB PO SCH (09:31)
[2016-11-10] MEDS: IPRATROPIUM NASAL SCH ×3 (09:32→20:37)
[2016-11-10] MEDS: OFEV 150 MG PO SCH ×2 (09:32→18:38)
[2016-11-10] MEDS: PIOGLITAZONE 30 MG TAB PO SCH (09:40)
--- NOTE | 2016-11-10 10:10 | CONS ---
DATE OF ADMISSION: 11/08/2016 DATE OF CONSULTATION: 11/10/2016 CONSULTATION FOLLOWUP Patient was seen at approximately 8:00 a.m. on 11/10/2016. HISTORY OF PRESENT ILLNESS: The patient is quite alert today, feeling well, in the middle of having his knee worked on. Feels quite good. PHYSICAL EXAMINATION: VITAL SIGNS: The patient's blood pressure was 156/77, pulse was 65 and regular, respirations 18, te mperature 98.6, O2 saturation 97%. HEENT: Unremarkable. LUNGS: Relatively clear. HEART: Reveals a regular rhythm. ABDOMINAL EXAM: Unremarkable. IMPRESSION: 1. Status post total knee replacement, left side. 2. Parkinson's disease. 3. Interstitial lung disease, moderately severe. 4. Hyperlipidemia. 5. Diabetes mellitus type 2. 6. GERD. DISCUSSION: Laboratory and other data today reveals his white count is still coming down. His hemog lobin is 10.4. His chemistries done today revealed a normal BUN and creatinine and his glucoses are all in the low 100s, this morning it was 109. PLAN: Per Dr. Romero. From a medical standpoint, the patient is quite stable. Management ultim ately per orthopedics. Thank you again, Dr. Romero, for allowing us to participate in care of this patient. Dictated By: TENISHA COLLADO/SANDRA Conf#: [id number] DID#: [id number]
[2016-11-10 19:00] VITALS: BP 148/89; RESP 18
[2016-11-11 04:56] LABS: ADD SCAN DIFF NO
[2016-11-11 05:22] LABS: BASOPHILS % 0.1 % (0.0-2.0); EOSINOPHILS # 0.1 10^3/ul (0.0-0.5); EOSINOPHILS % 0.8 % (0.0-7.0); HEMATOCRIT 34.9 % (42.0-52.0); HEMOGLOBIN 11.2 g/dl (14.0-18.0); LYMPHOCYTES # 2.5 10^3/ul (0.8-2.9); LYMPHOCYTES % 20.9 % (15.0-51.0); MEAN CORPUSCULAR HEMOGLOBIN 27.1 pg (29.0-33.0); MEAN CORPUSCULAR HGB CONC 32.1 g/dl (32.0-37.0); MEAN CORPUSCULAR VOLUME 84.3 fl (82.0-101.0); MONOCYTE # 1.5 10^3/ul (0.3-0.9); MONOCYTES % 12.4 % (0.0-11.0); NEUTROPHIL # 7.7 10^3/ul (1.6-7.5); NEUTROPHILS % 65.5 % (39.0-77.0); PLATELET COUNT 167 10^3/UL (140-415); RED BLOOD COUNT 4.14 10^6/ul (4.70-6.10); RED CELL DISTRIBUTION WIDTH 15.2 % (11.5-14.5); WHITE BLOOD COUNT 11.8 10^3/ul (4.8-10.8)
[2016-11-11] MEDS: DEXAMETHASONE 4 MG/ML 1 ML INJ IV SCH (06:55)
[2016-11-11] MEDS: PANTOPRAZOLE (EC) 40 MG TAB PO SCH (06:55)
[2016-11-11] MEDS: INSULIN ASPART [NOVOLOG] 3 ML PEN SC SCH (07:20)
[2016-11-11 07:28] VITALS: BP 123/65; RESP 1; RESP 18
--- NOTE | 2016-11-11 08:18 | PN ---
Date/Time of Note Date/Time of Note DATE: 11/11/16 TIME: 08:12 Assessment/Plan VTE Prophylaxis VTE Prophylaxis Intervention: ambulation, anti-embolic stocking, SCD's, other ( Aspirin 325 mg twice daily.) Lines/Catheters IV Catheter Type (from Nrsg): Saline Lock Jarvis in Place (from Nrsg): No Assessment/Plan Assessment/Plan -Pain Meds as needed -Dress change performed today -ASA for DVT Prophylaxis x 6 weeks outpatient discussed. -Continue monitoring as outpatient on discharge -Follow-up at scheduled postop outpatient appointment or sooner if there is any issue. -Tegaderm dressings given yesterday with specific instructions (repeated today) to use as outpatient to keep wound dry until ed are moved around 10 days. -Patient Stable -White blood cell count at 11.8 from 13.1 yesterday. Continues to trend downward. No signs or symptoms of infection. Patient will have one last dose of vancomycin prior to discharge. Confirmed with Dr. Huff that patient is okay to go home. Will need to be cleared by physical therapy. -Discharge to Home with home health Subjective 24 Hr Interval Summary 76-year-old male postop day 3 status post left total knee arthroplasty. Continues to progress well. Patient did experience discomfort overnight with pain at the knee at around 4/10 on the pain scale. Patient continues with physical therapy as he is up and out of bed walking throughout the hallways. Patient is able to climb stairs. Using front-wheeled walker for assisted ambulation. White blood cell count continues to trend downward. Has scheduled last vancomycin dose later today. Patient would like to go home today as he continues to improve. Constitutional: no complaints Pain Control: mild Exam/Review of Systems Vital Signs Vitals Vital Signs Date Time Temp Pulse Resp B/P Pulse Ox O2 Delivery O2 Flow Rate FiO2 11/11/16 07:28 97.7 65 1 123/65 96 11/09/16 08:25 Nasal Cannula 2.0 Intake and Output 11/10/16 11/10/16 11/11/16 15:00 23:00 07:00 Intake Total 1000 ml 950 ml Output Total 950 ml 900 ml Balance 50 ml 50 ml Exam Free Text/Dictation -Hemovac: Removed -Incision: Clean, Dry and Intact with improved redness and small drainage at cocktail drain site. -5/5 Tibialis Anterior, EHL Gastrocnemius/Soleus and Peroneals -Range of motion is 5-90 today. -Normal Sensation -Palpable DP/PT, Capillary Refill <2 secs -No Distal Edema -Negative Alexandro Sign/No calf pain -Toes Freely Movable Constitutional: alert, oriented, well developed Results Result Diagram: 11/11/16 0440 11/10/16 0445 JULITA MCKINLEY PA-C Nov 11, 2016 08:18
--- NOTE | 2016-11-11 08:25 | PDOCDIS ---
Discharge Instructions DIAGNOSIS Discharge Diagnosis: Status post left total knee replacement CONDITION Patient Condition: Stable HOME CARE INSTRUCTIONS: Diet Instructions: Regular ACTIVITY: Activity Restrictions: Slowly Increase Activity (As tolerated) Rest between Activity Avoid heavy lifting No Sexual Activity Do not Drive (For 6 weeks) Do not operate Machinery Avoid Heavy Housework Keep Limb Elevated Weight Bearing (As tolerated) Bathing Restrictions: Shower (Using Tegaderm dressing with pad and applying instructions that were given. May stop using Tegaderm after ed have been removed around 10 days postop.) FOLLOW UP/APPOINTMENTS Appointments 11/29/2016 at 2:15 PM DVT prophylaxis with aspirin 325 mg twice daily. Pain medications as needed. JULITA MCKINLEY PA-C Nov 11, 2016 08:25
[2016-11-11] MEDS: IPRATROPIUM 0.03% 30 ML NASAL SPRAY NASAL SCH ×2 (09:00→12:55)
[2016-11-11] MEDS: DOCUSATE SODIUM 100 MG CAP PO SCH (09:00)
[2016-11-11] MEDS: CARBIDOPA/LEVODOPA (25/100) TAB PO SCH ×2 (09:21→12:54)
[2016-11-11] MEDS: RASAGILINE 0.5 MG PO SCH (09:22)
[2016-11-11] MEDS: FERROUS FUMARATE (SR) TAB PO SCH (09:22)
[2016-11-11] MEDS: ATORVASTATIN 10 MG TAB PO SCH (09:22)
[2016-11-11] MEDS: OFEV 150 MG PO SCH (09:22)
[2016-11-11] MEDS: MEMANTINE 10 MG TAB PO SCH (09:22)
[2016-11-11] MEDS: ASPIRIN (EC) 325 MG TAB PO SCH (09:22)
[2016-11-11] MEDS: IPRATROPIUM NASAL SCH ×2 (09:22→12:55)
[2016-11-11] MEDS: VANCOMYCIN 1 GM in NS 250 ML IVPB SCH (09:23)
[2016-11-11] MEDS: PIOGLITAZONE 30 MG TAB PO SCH (10:14)
--- NOTE | 2016-11-11 10:23 | PN ---
DATE: 11/11/2016 TIME: Approximately 7:45 a.m., 11/11/2016. SUBJECTIVE: The patient alert. Postoperatively, smiling, surrounded by his family, no particular c omplaints. OBJECTIVE: VITAL SIGNS: Blood pressure 123/65, temperature 97.7, pulse 65, respiratory rate 18, O2 saturation 96% on room air. HEENT: Unremarkable. LUNGS: Clear. HEART: Reveals a regular rhythm. The rest of the exam unremarkable. IMPRESSION: 1. Status post total knee replacement on the left side, stable. 2. Parkinson disease. 3. Interstitial lung disease. 4. Hyperlipidemia. 5. Diabetes mellitus type 2. LABORATORY: Laboratory results reveals the following: White count is down to 11.8. Patient's trina tito panel reveals glucoses in the 130s, rest is unremarkable. DISCUSSION: At this particular point in time the patient is medically stable. Management per Dr. Milady casillas. However, from my standpoint, he is doing quite nicely. Thank you again, Dr. Romero, for allowing us to participate in the care of this patient. Dictated By: TENISHA ROA MD SS/SANDRA Conf#: [id number] DID#: [id number]
[2016-11-11] MEDS: LACTATED RINGER'S 1,000 ML IV SCH (10:30)
== END 2016-11-11 14:10 | disposition home health service (06) | DRG 470 ==
LOC: REC 05:16 → MS1 15:00
PROC: 0SRD0J9 Replacement of Left Knee Joint with Synthetic Substitute, Cemented, Open Approach (ICD-10-PCS; principal; 2016-11-08 07:30)
DX: M17.12 Unilateral primary osteoarthritis, left knee (principal); J84.9 Interstitial pulmonary disease, unspecified; G20 Parkinson's disease; E11.9 Type 2 diabetes mellitus without complications; E78.5 Hyperlipidemia, unspecified; K21.9 Gastro-esophageal reflux disease without esophagitis; Z79.84 Long term (current) use of oral hypoglycemic drugs
CPT/HCPCS: 73560; 73562; 80202; 82565; 82962; 84520; 85025; 86850; 86900; 86901; 86920; 87081; 88304; 88311; 97110; 97116; 97162; 97530; A4310; C1776; J0131; J0690; J0735; J1100; J1170; J1815; J1885; J2250; J2274; J2405; J2710; J2795; J3010; J3370; J7050; J7120; J7121

== ENCOUNTER → 2016-11-29 | Outpatient (CLI) | payer MEDICARE, OTHER ==
[~2016-11-29] MED LIST: IPRA12.93 INHALATION; MECO5000 PO; MEMA10TA16 PO; NINT150C PO; OMEP20CA16 PO; PIOG30TA26 PO; RASA1TAB PO; SIN25100 PO; ZOC20 PO
--- NOTE | 2016-11-29 15:19 | PN ---
Date/Time of Note Date/Time of Note DATE: 11/29/16 TIME: 15:13 Outpatient Progress Note Chief Complaint 3 weeks postop left total knee arthroplasty on 11/08/2016. HPI 76-year-old male presents today for three-week postoperative visit status post left total knee arthroplasty on 11/08/2016. Patient continues to progress. Reports mild occasional pain. Patient takes Tylenol as needed for pain complaints which manage his pain. Continues with at home physical therapy. Has improved in regards to range of motion. Denies any chest tightness/pain, shortness of breath or difficulty breathing. No calf pain status post surgery. Patient developed pressure sore about 1-2 weeks ago. Patient's states that patient was lying supine for prolonged amounts of time while performing ice therapy. Patient has seen primary care provider who provided wound care instructions for patient today. Pressure sore appears to be at stage I to stage II. Small right to the superior buttock region midline. Review of Systems Const: No Fever, no chills, no Fatigue, normal appetite, no diaphoresis. Resp: No SOB, no wheezing, no chest pain. CV: No chest pain, no palpitaions, no GURROLA. Physical Exam Blood pressure is 115/58, temperature 97.8, pulse is 82, respiratory rate is 14 , height is 5 foot 7 inches, weight is 170 pounds. General Appearance: well-developed, well-nourished, in no acute distress. Left knee: Wound site is clean dry and intact. Campbell have been removed. Healing well. No tenderness to palpation. About 5 lag from full extension. Patient is able to flex up to 100. No pain with range of motion. No calf pain /negative Homans sign. Normal sensory examination to light touch. About 4+/5 strength on extension and flexion with resistance. Slight limp. Patient uses 3 point cane for assisted ambulation. Stage I pressure sore. No signs of infection. Pressure sores midline to the posterior buttocks. Allergies Coded Allergies: ciprofloxacin (Unverified Allergy, Severe, AVOID WITH OFEV (PATIENT'S OWN MED), 11/09/16) FAMILY REQUESTS TO AVOID ANY FLUOROQUINOLONES THAT MAY (?) INTERACT WITH OFEV.... Sulfa (Sulfonamide Antibiotics) (Unverified Allergy, Unknown, RASH, ) Assessment/Plan -Wound healing well after staple removal. No signs of infection. -Continue ASA 325 mg twice daily for DVT prophylaxis until 6 weeks status post surgery. -No signs of DVT. -Patient progressing well. -Antibiotic card provided today. Dental prophylaxis discussed with patient and patient's today. -Follow-up at 6 week postop appointment. X-rays will be performed at 6 weeks postoperative appointment. -Patient made aware that they may follow-up sooner, should they experience any issues or complications as we will be glad to see them. -Order for outpatient physical therapy given today with focus on improved range of motion. Dr. Romero is also seen patient and agrees with plan. Medications Home Meds Reported Medications Ipratropium [place]* (Atrovent HFA*) 12.9 Gm Aer.w.adap, 2 PUFF INHALATION TID, #1 INHALER 11/08/16 Mecobalamin (B-12) 5,000 Mcg Tab.rapdis, 5000 MCG PO 11/08/16 Rasagiline Mesylate* (Azilect*) 1 Mg Tablet, 1 MG PO DAILY, TAB 11/08/16 Pioglitazone Hcl* (Pioglitazone Hcl*) 30 Mg Tablet, 30 MG PO DAILY, TAB 11/08/16 Nintedanib Esylate (Ofev) 150 Mg Capsule, 150 MG PO, CAP 11/08/16 Omeprazole* (Omeprazole*) 20 Mg Capsule.dr, 20 MG PO DAILY, #30 CAP 11/08/16 Simvastatin (Simvastatin) 20 Mg Tablet, 20 MG PO DAILY, #30 TAB 11/08/16 Memantine* (Namenda*) 10 Mg Tablet, 10 MG PO BID, #60 TAB 11/08/16 Carbidopa-Levodopa* (Sinemet*) 25-100 Mg Tab, 2 TAB PO TID, TAB 11/08/16 JULITA MCKINLEY PA-C Nov 29, 2016 15:19
== END | disposition home or self-care (01) ==
LOC: HKI 14:07
DX: Z47.1 Aftercare following joint replacement surgery (principal); Z96.652 Presence of left artificial knee joint

== ENCOUNTER → 2016-12-06 | Outpatient (CLI) | payer MEDICARE, OTHER ==
[~2016-12-06] MED LIST changes: +SIMV20TA2 PO; -ZOC20 PO
--- NOTE | 2016-12-06 13:42 | PN ---
Date/Time of Note Date/Time of Note DATE: 12/06/16 TIME: 13:37 Outpatient Progress Note Chief Complaint Follow-up status post left knee replacement after possible injury that occurred a couple days ago. HPI 76-year-old male presents today for follow-up after possible injury to the left knee that occurred a couple of days ago. Patient was in a grocery store and twisted his knee outward to grab an object when he felt sudden shock of pain, primarily to the posterior knee. Patient experienced severe pain initially but over time pain has subsided. Patient does feel stiffness primarily to the posterior knee but states that he is doing much better. Continues to ambulate with single-point cane. Presents today early due to concern after sudden injury. Denies any fall at the time. Denies any calf pain, chest pain or tightness. Patient presents with today. Review of Systems Const: No Fever, no chills, no Fatigue, normal appetite, no diaphoresis. Resp: No SOB, no wheezing, no chest pain. CV: No chest pain, no palpitaions, no GURROLA. Physical Exam Blood pressure is 102/59, temperature is 97.7, pulse is 84, respiratory rate is 12, height is 5 foot 7 inches, weight is 170 pounds. General Appearance: well-developed, well-nourished, in no acute distress. Left knee: Single-point cane for assisted ambulation. No pain with ambulation today. No tenderness to palpation to the left knee. There is hypersensitivity over the medial aspect of the surgical wound to the left knee. Patient is able to achieve full extension and able to actively flex up to 110. Slight discomfort with flexion. 5/5 strength on resistance with flexion and extension. No calf pain/negative Homans sign. There appears to be no new onset of noticeable injury to the bone or soft tissue. Surgical scars healing well. Allergies Coded Allergies: ciprofloxacin (Unverified Allergy, Severe, AVOID WITH OFEV (PATIENT'S OWN MED), 11/09/16) FAMILY REQUESTS TO AVOID ANY FLUOROQUINOLONES THAT MAY (?) INTERACT WITH OFEV.... Sulfa (Sulfonamide Antibiotics) (Unverified Allergy, Unknown, RASH, ) Assessment/Plan -Likely soft tissue injury/sprain. Given patient's description, high suspicion of possible hamstring sprain that has improved on its own. -RICE protocol is recommended for suspected sprain to the hamstring. -Wound healing well after staple removal. No signs of infection. Patient and patient's also state the stage I pressure sore to the sacral region is also improving. -Continue ASA 325 mg twice daily for DVT prophylaxis until 6 weeks status post surgery. -No signs of DVT. -Patient progressing well. -Follow-up at 6 week postop appointment. X-rays will be performed at 6 weeks postoperative appointment. -Patient made aware that they may follow-up sooner, should they experience any issues or complications as we will be glad to see them. -Order for outpatient physical therapy given today with focus on improved range of motion. Medications Home Meds Reported Medications Ipratropium [place]* (Atrovent HFA*) 12.9 Gm Aer.w.adap, 2 PUFF INHALATION TID, #1 INHALER 11/08/16 Mecobalamin (B-12) 5,000 Mcg Tab.rapdis, 5000 MCG PO 11/08/16 Rasagiline Mesylate* (Azilect*) 1 Mg Tablet, 1 MG PO DAILY, TAB 11/08/16 Pioglitazone Hcl* (Pioglitazone Hcl*) 30 Mg Tablet, 30 MG PO DAILY, TAB 11/08/16 Nintedanib Esylate (Ofev) 150 Mg Capsule, 150 MG PO, CAP 11/08/16 Omeprazole* (Omeprazole*) 20 Mg Capsule.dr, 20 MG PO DAILY, #30 CAP 11/08/16 Simvastatin (Simvastatin) 20 Mg Tablet, 20 MG PO DAILY, #30 TAB 11/08/16 Memantine* (Namenda*) 10 Mg Tablet, 10 MG PO BID, #60 TAB 11/08/16 Carbidopa-Levodopa* (Sinemet*) 25-100 Mg Tab, 2 TAB PO TID, TAB 11/08/16 JULITA MCKINLEY PA-C Dec 06, 2016 13:42
== END | disposition home or self-care (01) ==
LOC: HKI 13:20
DX: Z47.1 Aftercare following joint replacement surgery (principal); M25.562 Pain in left knee; M25.662 Stiffness of left knee, not elsewhere classified; Z96.652 Presence of left artificial knee joint

== ENCOUNTER → 2016-12-20 | Outpatient (CLI) | payer MEDICARE, OTHER ==
--- NOTE | 2016-12-20 14:09 | PN ---
Date/Time of Note Date/Time of Note DATE: 12/20/16 TIME: 14:06 Outpatient Progress Note Chief Complaint Status post left total knee arthroplasty. 6 week postop appointment. HPI 76-year-old male presents today for 6 week postoperative appointment status post left total knee arthroplasty on 11/08/2016. Since patient was last seen, stage I pressure sore has healed. Patient has been doing well in regards to pressure sore. In regards to the left knee, he states that he has significantly improved. Patient is back to riding his bicycle. Surgical wound is healing well. Denies any infection or symptoms of infection. Denies any calf pain, chest pain/tightness or shortness of breath. Patient presents with today. also confirms that patient has been doing well status post surgery. Has yet to initiate outpatient physical therapy. Review of Systems Const: No Fever, no chills, no Fatigue, normal appetite, no diaphoresis. Resp: No SOB, no wheezing, no chest pain. CV: No chest pain, no palpitaions, no GURROLA. Physical Exam Blood pressure is 110/65, temperature is 97, pulse is 79, respiratory rate is 12, height is 5 feet 7 inches, weight is 170 pounds. General Appearance: well-developed, well-nourished, in no acute distress. Left knee: Surgical wound healing well with no signs of any complications or infection. Negative Homans sign. Normal sensory examination to light touch. No tenderness to palpation to the left knee. About 10 lag from full extension. Patient able to actively flex up to 120. Continues using single- point cane for assisted ambulation. 5/5 strength on resistance with flexion and extension. Imaging X-ray of the left knee performed on 12/20/2016 showing all components appearing well aligned, attached and integrated to the bone. No signs of any lucency between metal and bone. Allergies Coded Allergies: ciprofloxacin (Unverified Allergy, Severe, AVOID WITH OFEV (PATIENT'S OWN MED), 11/09/16) FAMILY REQUESTS TO AVOID ANY FLUOROQUINOLONES THAT MAY (?) INTERACT WITH OFEV.... Sulfa (Sulfonamide Antibiotics) (Unverified Allergy, Unknown, RASH, ) Assessment/Plan -Patient progressing well -Surgical wound continues to heal well. -No signs of infection or DVT on exam. -X-rays showing no abnormalities in regards to prosthesis attachment to bone. -Range of motion is improved status post total knee replacement. -Antibiotic prophylaxis card provided today. -Follow-up 6 months status post surgery. If patient is doing well at that time , possible follow-up on as-needed basis from that point. Dental prophylaxis discussed in detail today. Patient given prophylaxis card with antibiotic options. Should patient have allergy to specific medication ( eg penicillin) alternative options are also provided on the card. Patient is aware that antibiotics should be taken prior to any procedures to prevent increased risk of infection to the joint. Patient is aware that this will be for the rest of their life. Patient states understanding and compliance. Medications Home Meds Reported Medications Ipratropium [place]* (Atrovent HFA*) 12.9 Gm Aer.w.adap, 2 PUFF INHALATION TID, #1 INHALER 11/08/16 Mecobalamin (B-12) 5,000 Mcg Tab.rapdis, 5000 MCG PO 11/08/16 Rasagiline Mesylate* (Azilect*) 1 Mg Tablet, 1 MG PO DAILY, TAB 11/08/16 Pioglitazone Hcl* (Pioglitazone Hcl*) 30 Mg Tablet, 30 MG PO DAILY, TAB 11/08/16 Nintedanib Esylate (Ofev) 150 Mg Capsule, 150 MG PO, CAP 11/08/16 Omeprazole* (Omeprazole*) 20 Mg Capsule.dr, 20 MG PO DAILY, #30 CAP 11/08/16 Simvastatin (Simvastatin) 20 Mg Tablet, 20 MG PO DAILY, #30 TAB 11/08/16 Memantine* (Namenda*) 10 Mg Tablet, 10 MG PO BID, #60 TAB 11/08/16 Carbidopa-Levodopa* (Sinemet*) 25-100 Mg Tab, 2 TAB PO TID, TAB 11/08/16 JULITA MCKINLEY PA-C December 20, 2016 14:09
--- NOTE | 2016-12-20 14:22 | RADRPT ---
PROCEDURE: XR left knee. CLINICAL INDICATION: Knee pain. TECHNIQUE: AP weightbearing, lateral weightbearing and sunrise views are available for review. COMPARISON: 11/08/2016 FINDINGS: There is a constrained total knee replacement. There is no evidence of loosening of the prosthesis. There is no evidence of hardware failure. The osseous structures are normal in mineralization, archi tecture and alignment No acute fracture or dislocation is seen.No osseous lesions are identified. T he soft tissues are unremarkable . there is a suprapatellar joint effusion IMPRESSION: Unremarkable constrained total knee replacement. Suprapatellar joint effusion RPTAT: [facility] .Rafael Carey MD, MD Date Time Electronically viewed and signed by .Rafael Carey MD, on 12/20/2016 14:21 .B/
== END | disposition home or self-care (01) ==
LOC: HKI 13:34
DX: Z47.1 Aftercare following joint replacement surgery (principal); Z96.652 Presence of left artificial knee joint